=== PATIENT | female | born 1960 | race Caucasian/White ===

== ENCOUNTER 2017-06-21 21:29 | Emergency (ER) | payer BC ==
[~2017-06-21] VITALS: Ht 162.6 cm; Wt 104.3 kg
[2017-06-21 21:33] VITALS: Ht 162.6 cm; Wt 104.3 kg
[2017-06-21 23:07] LABS: BASOPHIL % 1.4 % (0-2); PLATELET COUNT 289 x10^3mcL (130-400); RED CELL DISTRIBUTION WIDTH 13.4 % (11.5-14.5)
[2017-06-21 23:21] LABS: CALCIUM 9.2 mg/dL (8.5-10.1); CARBON DIOXIDE 27.3 mmol/L (21-32); CHLORIDE SERUM 106 mmol/L (98-107); CREATININE SERUM 0.9 mg/dL (0.6-1.0); GFR1 > 60 mL/min; GLUCOSE SERUM 85 mg/dL (74-106); POTASSIUM SERUM 3.9 mmol/L (3.5-5.1); SODIUM SERUM 144 mmol/L (136-145)
[2017-06-21 23:25] LABS: ALBUMIN 3.9 g/dL (3.4-5.0); ALKALINE PHOSPHATASE 100 U/L (46-116); ALT/SGPT 61 U/L (14-59); AST/SGOT 21 U/L (15-37); BILIRUBIN TOTAL 0.32 mg/dL (0.20-1.00); CHOLESTEROL 218 mg/dL (<200); HDL CHOLESTEROL 53 mg/dL (40-60); MAGNESIUM 2.1 mg/dL (1.8-2.4); TOTAL PROTEIN, SERUM 6.9 g/dL (6.4-8.2)
[2017-06-22 01:59] VITALS: BP 133/77
== END 2017-06-22 01:59 | disposition home or self-care (01) ==
LOC: ED 21:29
PROVIDERS: Emergency Medicine
DX: F43.20 Adjustment disorder, unspecified (principal); R06.4 Hyperventilation; R11.10 Vomiting, unspecified; R05 Cough; R53.1 Weakness
CPT/HCPCS: 36415; 83880